=== PATIENT | female | born 1980 | race African-American/Black ===

== ENCOUNTER 2020-02-24 15:18 | Emergency (ER) | payer MEDICAID ==
[~2020-02-24] VITALS: Ht 162.6 cm; Wt 76.2 kg
[~2020-02-24 15:18] MED LIST: EXCEDRIN MIGRA1 EACH PO; NKM; PROMETHAZINE-C118 M1 ORAL; TAMIFLU75 MG ORAL; TRAMADOL HCL50 MG ORAL
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
[2020-02-24] MEDS ORDERED: Methocarbamol 750mg tab ORAL ONE (16:30)
[2020-02-24] MEDS ORDERED: Ketorolac 30mg Inj IM ONE (16:30)
[2020-02-24 17:36] VITALS: BP 159/87
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
[2020-02-24] MEDS ORDERED: IBUPROFEN600 M1 ORAL (18:22)
[2020-02-24] MEDS ORDERED: ROBAXIN-500MG ORAL (18:22)
[2020-02-24] MEDS ORDERED: LIDODERM700 M1 TOPIC (18:22)
[2020-02-24 18:29] VITALS: BP 159/87
--- NOTE | 2020-02-24 18:29 | NUR ---
ED Nurse Note: Pt cleared by health care Provider for discharge. DC instructions/prescription was given and explained to pt and verbalized understanding of teachings. All medical deviecs such as ID band removed. Pt is AAO x4, ambulatory and left with all personal belongings.
== END 2020-02-24 18:30 | disposition home or self-care (01) ==
LOC: EMR 16:00
DX: S00.83XA Contusion of other part of head, initial encounter (principal); S16.1XXA Strain of muscle, fascia and tendon at neck level, initial encounter; M54.2 Cervicalgia; V43.62XA Car passenger injured in collision with other type car in traffic accident, initial encounter; Y92.410 Unspecified street and highway as the place of occurrence of the external cause
CPT/HCPCS: 70450; 70486; 72125; 96372; J1885; Z7502; 99284